=== PATIENT | female | born 1965 | race African-American/Black ===

== ENCOUNTER 2016-07-29 15:17 | Emergency (ER) | payer OTHER ==
--- NOTE | 2016-07-29 15:20 | PDOC ---
History of Present Illness <Lorena Muller - Last Filed: 07/29/16 18:14> <Edwina Montanez - Last Filed: 07/29/16 18:44> - General Chief Complaint: Chest Pain Stated Complaint: CHEST PAIN Time Seen by Provider: 07/29/16 15:20 - History of Present Illness Initial Comments: 07/29/16 16:03 The patient is a 50 year old female, with a significant past medical history of hypertension (enalapril 10 mg, amlodipine 5 mg, hydrochlorothiazide 25 mg), who presents to the emergency department with pleuritic chest pain and swelling to her bilateral lower extremities since yesterday. The patient describes her chest pain as a pulling in her chest that lasted all night which is exacerbated with deep inspiration. Secondarily, the patient reports her lower extremities are more swollen today, worse on the left than the right. The patient reports driving to and from [place] 8 days ago. She reports having a negative stress test over 5 years ago which was negative. She denies history of blood clots. She denies shortness of breath, headache and dizziness. She denies fever, chills , nausea, vomit, diarrhea and constipation. She denies dysuria, frequency, urgency and hematuria. Allergies: penicillin (childhood) Social history: Denies toxic habits Family HIstory: Cardiac Disease s/p stents (father age 60) PCP - Dr. Robert Ceballos (Edwina Montanez) Past History - Past Medical History HTN: Yes - Immunization History Td Vaccination: (unknown) Immunization Up to Date: Yes - Psycho/Social/Smoking Cessation Hx Anxiety: No Suicidal Ideation: No Smoking Status: No Smoking History: Never smoked Years of Tobacco Use: 0 Number of Cigarettes Smoked Daily: 0 Cigars Per Day: 0 Hx Alcohol Use: No Drug/Substance Use Hx: No <Lorena Muller - Last Filed: 07/29/16 18:14> <Edwina Montanez - Last Filed: 07/29/16 18:44> - Past Medical History Allergies/Adverse Reactions: Allergies Allergy/AdvReac Type Severity Reaction Status Date / Time Penicillins Allergy Severe anaphylaxis Verified 07/29/16 15:18 Home Medications: Ambulatory Orders Hydrochlorothiazide 25 mg PO DAILY 05/14/12 Amlodipine Besylate 5 mg PO DAILY 07/29/16 Enalapril Maleate [Vasotec -] 10 mg PO DAILY 07/29/16 Review of Systems <Lorena Muller - Last Filed: 07/29/16 18:14> - Review of Systems Able to Perform ROS?: Yes <Edwina Montanez - Last Filed: 07/29/16 18:44> - Review of Systems Comments:: 07/29/16 16:03 GENERAL/CONSTITUTIONAL: No fever or chills. No weakness. HEAD, EYES, EARS, NOSE AND THROAT: No change in vision. No ear pain or discharge. No sore throat. CARDIOVASCULAR: (+) Pleuritic chest pain. No shortness of breath. RESPIRATORY: No cough, wheezing, or hemoptysis. GASTROINTESTINAL: No nausea, vomiting, diarrhea or constipation. GENITOURINARY: No dysuria, frequency, or change in urination. MUSCULOSKELETAL: (+) bilateral lower extremity edema. No joint or muscle pain. No neck or back pain. SKIN: No rash NEUROLOGIC: No headache, vertigo, loss of consciousness, or change in strength/ sensation. ENDOCRINE: No increased thirst. No abnormal weight change. HEMATOLOGIC/LYMPHATIC: No anemia, easy bleeding, or history of blood clots. ALLERGIC/IMMUNOLOGIC: No hives or skin allergy. (Edwina Montanez) *Physical Exam <Lorena Muller - Last Filed: 07/29/16 18:14> <Edwina Montanez - Last Filed: 07/29/16 18:44> - Vital Signs Last Vital Signs Temp Pulse Resp BP Pulse Ox 98 F 62 18 152/84 100 07/29/16 15:18 07/29/16 15:18 07/29/16 15:18 07/29/16 15:18 07/29/16 15:18 - Physical Exam Comments: 07/29/16 16:04 GENERAL: Awake, alert, and fully oriented, in no acute distress HEAD: No signs of trauma EYES: PERRLA, EOMI, sclera anicteric, conjunctiva clear ENT: Auricles normal inspection, hearing grossly normal, nares patent, oropharynx clear without exudates. Moist mucosa NECK: Normal ROM, supple, no lymphadenopathy, JVD, or masses LUNGS: Breath sounds equal, clear to auscultation bilaterally. No wheezes, and no crackles HEART: (+) right sided chest wall ttp, Regular rate and rhythm, normal S1 and S2 , no murmurs, rubs or gallops ABDOMEN: Soft, nontender, normoactive bowel sounds. No guarding, no rebound. No masses EXTREMITIES: (+) bilateral lower extremity edema: left slightly larger than right. Normal range of motion, No clubbing or cyanosis. No cords, erythema, or tenderness NEUROLOGICAL: Normal speech, normal gait SKIN: Warm, Dry, normal turgor, no rashes or lesions noted. (Edwina Montanez) Heart Score/ECG Review - History History: Slightly suspicious - Electrocardiogram EKG: Non specific repolarization disturbance - Age Age: 45-65 - Risk Factors Risk Factors Heart Score: Yes Hx Hypertension, Yes Positive family hx of cardiac disease Based on the list above the patient has:: 1-2 risk factors - Troponin Troponin: </= normal limit - Score Heart Score - Total: 3 #1 General ECG Interpretation: Sinus Rhythm, Normal Rate (58), Normal Intervals, No acute ischemic changes Compared to previous ECG there are: Other <Lorena Muller - Last Filed: 07/29/16 18:14> <Edwina Montanez - Last Filed: 07/29/16 18:44> #1 07/29/16 16:41 TWI III, flat AVF, no change comparison 08/19/11 (Lorena Muller) ED Treatment Course - LABORATORY CBC & Chemistry Diagram: 07/29/16 16:00 07/29/16 16:00 <Lorena Muller - Last Filed: 07/29/16 18:14> - LABORATORY CBC & Chemistry Diagram: 07/29/16 16:00 07/29/16 16:00 <Edwina Montanez - Last Filed: 07/29/16 18:44> - ADDITIONAL ORDERS Additional order review: Laboratory Results 07/29/16 07/29/16 07/29/16 16:00 16:00 16:00 INR 1.06 Sodium 137 Potassium 3.3 L Chloride 103 Carbon Dioxide 26 Anion Gap 8 BUN 12 Creatinine 0.9 Creat Clearance w eGFR > 60 Random Glucose 91 Calcium 8.9 Total Bilirubin 0.5 AST 21 ALT 15 Alkaline Phosphatase 51 Creatine Kinase 90 Troponin I < 0.03 L Total Protein 6.6 Albumin 3.6 Urine HCG, Qual 07/29/16 15:25 INR Sodium Potassium Chloride Carbon Dioxide Anion Gap BUN Creatinine Creat Clearance w eGFR Random Glucose Calcium Total Bilirubin AST ALT Alkaline Phosphatase Creatine Kinase Troponin I Total Protein Albumin Urine HCG, Qual Negative 07/29/16 16:00 RBC 4.17 MCV 84.6 MCHC 34.5 RDW 12.8 MPV 8.1 Neutrophils % 65.3 Lymphocytes % 24.0 Monocytes % 7.1 Eosinophils % 2.6 Basophils % 1.0 - RADIOLOGY Radiograph Interpretation: 07/29/16 17:50 EXAM: CTA chest was read by Jorge Gee MD at 17:35 EST REASON FOR EXAM: Pleuritic chest pain and leg swelling. Recent travel FINDINGS: There is no evidence of pulmonary embolism The thoracic aorta is normal in course and caliber without dissection The heart is not enlarged. Trace pericardial effusion The tracheobronchial tree is patent Mild dependent atelectasis with no air space consolidation, infiltrates or pleural effusions Small hiatal hernia versus epiphrenic diverticulum There are innumerable scattered hypodense lesions throughout the liver the largest measuring up to 1.5 cm are likely cysts. Most are subcentimeter and too small to accurately characterize. Splenic calcification compatible with a granuloma EXAM: Ultrasound venous Doppler left lower extremity was read by Jorge Gee MD 07/29/2016 18:09 EST REASON FOR EXAM: Left leg swelling FINDINGS: The deep veins of the left lower extremity are compressible, patent and augment normally. No evidence of deep vein thrombosis (Edwina Montanez) - Medications Given in the ED: ED Medications Discontinued Medications Generic Name Dose Route Start Last Admin Trade Name Juanq PRN Reason Stop Dose Admin Aspirin 162 mg 07/29/16 15:54 07/29/16 16:13 Asa - PO 07/29/16 15:55 162 mg ONCE ONE Administration Medical Decision Making <Lorena Muller - Last Filed: 07/29/16 18:14> <Edwina Montanez - Last Filed: 07/29/16 18:44> - Medical Decision Making 07/29/16 15:20 50 yo F with h/o HTN, here wtih chest pain started last pm, lasted all night. described as a " stretching" feeling across chest , is pluertic, no associated sob or n/v no diaphoresis. took gingeral e to help di not help. does have family h/o CAD father stents in 60's yo,. she did have stress test over 5 yrs ago. did recently travel by car to [place], c/o bilat leg swelling, left greater than right. no h/o pe or dvt. on exam awake alert, lungs clear. mild right sided chest wall tenderness. heart RRR no mr/g. abd soft. ext wwp mild nonpitting edeam L >R. symmetric pulses bilaterally. differential: costochondritis, pe acs. infection plan cta chest , labs trop ekg aspirin, observation. will d/w pt pcp regarding need for rpeat stress. 07/29/16 16:36 07/29/16 18:14 pt with negative troponin. ct a negative for pe. doppler negative of left leg. d/w dr. Sampson, 4 hour troponin, will dc home followup in 72 hours for stress test. recommend baby aspirin until followup. (Lorena Muller) 07/29/16 17:47 Dr. Dav Ceballos was paged via phone answering service requesting a call back for doctor to doctor consult at this time. I have been informed Dr. Sampson is covering for Dr. Ceballos this evening and will return the page. 07/29/16 18:05 Dr. Sampson returned the call and the patient's case was discussed. (Edwina Montanez) *DC/Admit/Observation/Transfer <Lorena Muller - Last Filed: 07/29/16 18:14> <Edwina Montanez - Last Filed: 07/29/16 18:44> Diagnosis at time of Disposition: Chest pain - Discharge Dispostion Condition at time of disposition: Stable - Referrals Referrals: Dav Ceballos MD [Primary Care Provider] - - Patient Instructions Printed Discharge Instructions: DI for Chest Pain Additional Instructions: you should take baby aspirin daily until followup. follow up with Dr. Ceballos within 2 - 3 days. call sunday to . you will need another outpatient stress test. return for recurrent or worsening pain , shortness of breath or any concerns. your test today including blood work, heart enzymes, ekg , ct of your chest and doppler of your leg were all negative. incidently , they did see nonsignificant cyst on your liver. you may need follow up ct in 6 mo, or outpatient MRI. give copy of your report to Dr. Ceballos when you followup. - Attestations Scribe Attestion: 07/29/16 16:06 Documentation prepared by Edwina Montanez, acting as certified medical coder for Lorena Muller MD, (Edwina Montanez)
[2016-07-29 15:24] VITALS: TEMP 98; BMI 31.1
[2016-07-29] MEDS ORDERED: ASPIRIN 81 MG CHEWABLE TABLETS PO ONE (15:54)
[2016-07-29] MEDS ORDERED: ASPIRIN 81 MG CHEWABLE TABLETS ONE (16:11)
[2016-07-29 16:20] LABS: EOSINOPHIL 2.6 % (0-4.5); MCH 29.2 pg (25.7-33.7); MCHC 34.5 g/dl (32.0-36.0); MEAN CELL VOLUME 84.6 fl (80-96); MEAN PLT VOLUME 8.1 fl (7.5-11.1); NEUTROPHILS 65.3 % (42.8-82.8); PLATELET COUNT 241 K/MM3 (134-434); RDW 12.8 % (11.6-15.6); WHITE BLOOD COUNT 6.3 K/mm3 (4.0-10.8)
[2016-07-29 16:29] LABS: INR 1.06 (0.82-1.09); PROTHROMBIN TIME (PATIENT) 11.8 SEC (10.2-13.0)
[2016-07-29 16:31] LABS: ALBUMIN 3.6 g/dl (3.5-5.0); ALK PHOS 51 U/L (32-92); ANION GAP 8 (8-16); CALCIUM 8.9 mg/dl (8.4-10.2); CO2 26 mmol/L (22-28); CREATININE 0.9 mg/dl (0.6-1.3); GLUCOSE,RANDOM 91 mg/dl (74-106); SGOT/AST 21 U/L (10-42); SGPT/ALT 15 U/L (10-40); TOT PROT 6.6 g/dl (6.4-8.3)
[2016-07-29 16:33] LABS: CPK(DFH) 90 IU/L (26-140)
[2016-07-29 16:40] LABS: TROPONIN I (DFP) < 0.03 ng/ml (0.03-0.50)
[2016-07-29 16:47] LABS: BILIRUBIN,TOTAL 0.5 mg/dl (0.2-1.0)
--- NOTE | 2016-07-29 19:10 | PDOC ---
*Physical Exam - Vital Signs Last Vital Signs Temp Pulse Resp BP Pulse Ox 98 F 62 18 152/84 100 07/29/16 15:18 07/29/16 15:18 07/29/16 15:18 07/29/16 15:18 07/29/16 15:18 Heart Score/ECG Review - History History: Slightly suspicious - Electrocardiogram EKG: Non specific repolarization disturbance - Age Age: 45-65 - Risk Factors Risk Factors Heart Score: Yes Hx Hypertension, Yes Positive family hx of cardiac disease Based on the list above the patient has:: 1-2 risk factors - Troponin Troponin: </= normal limit - Score Heart Score - Total: 3 ED Treatment Course - LABORATORY CBC & Chemistry Diagram: 07/29/16 16:00 07/29/16 16:00 - ADDITIONAL ORDERS Additional order review: Laboratory Results 07/29/16 07/29/16 07/29/16 16:00 16:00 16:00 INR 1.06 Sodium 137 Potassium 3.3 L Chloride 103 Carbon Dioxide 26 Anion Gap 8 BUN 12 Creatinine 0.9 Creat Clearance w eGFR > 60 Random Glucose 91 Calcium 8.9 Total Bilirubin 0.5 AST 21 ALT 15 Alkaline Phosphatase 51 Creatine Kinase 90 Troponin I < 0.03 L Total Protein 6.6 Albumin 3.6 Urine HCG, Qual 07/29/16 15:25 INR Sodium Potassium Chloride Carbon Dioxide Anion Gap BUN Creatinine Creat Clearance w eGFR Random Glucose Calcium Total Bilirubin AST ALT Alkaline Phosphatase Creatine Kinase Troponin I Total Protein Albumin Urine HCG, Qual Negative 07/29/16 16:00 RBC 4.17 MCV 84.6 MCHC 34.5 RDW 12.8 MPV 8.1 Neutrophils % 65.3 Lymphocytes % 24.0 Monocytes % 7.1 Eosinophils % 2.6 Basophils % 1.0 - Medications Given in the ED: ED Medications Discontinued Medications Generic Name Dose Route Start Last Admin Trade Name Freq PRN Reason Stop Dose Admin Aspirin 162 mg 07/29/16 15:54 07/29/16 16:13 Asa - PO 07/29/16 15:55 162 mg ONCE ONE Administration Medical Decision Making - Medical Decision Making 07/29/16 19:08 Pt signed out to me from Dr. Muller. The patient is a 50y F hx of htn presents with a pleuritic cp, has a negative 1st set of troponin and neg CTA for PE, sp ASA. Pts HEART score is 3, low risk. Is currently awaiting 2nd troponin at 8pm and pt will be discharged for an outpt stress test. Pt currently resting comfortablly in her stretcher. 07/29/16 20:48 trop neg x 2 pt feeling improved will dc with pmd fu return precautions were discussed I discussed the physical exam findings, ancillary test results and final diagnoses with the patient. I answered all of the patient's questions. The patient was satisfied with the care received and felt comfortable with the discharge plan and treatment plan. The patient will call their primary care physician within 24 hours to arrange follow-up and will return to the Emergency Department with any new, persistent or worsening symptoms. *DC/Admit/Observation/Transfer Diagnosis at time of Disposition: Chest pain Qualifiers: Chest pain type: unspecified Qualified Code(s): R07.9 - Chest pain, unspecified - Discharge Dispostion Disposition: HOME Condition at time of disposition: Improved Admit: No - Referrals Referrals: Dav Ceballos MD [Primary Care Provider] - - Patient Instructions Printed Discharge Instructions: DI for Chest Pain Additional Instructions: you should take baby aspirin daily until followup. follow up with Dr. Ceballos within 2 - 3 days. call sunday to schedule. you will need another outpatient stress test. return for recurrent or worsening pain , shortness of breath or any concerns. your test today including blood work, heart enzymes, ekg , ct of your chest and doppler of your leg were all negative. incidently , they did see nonsignificant cyst on your liver. you may need follow up ct in 6 mo, or outpatient MRI. give copy of your report to Dr. Ceballos when you followup. - Post Discharge Activity
[2016-07-29 20:02] VITALS: BP 114/65; PULSE 57
[2016-07-29 20:31] LABS: CPK(DFH) 86 IU/L (26-140)
[2016-07-29 20:43] LABS: TROPONIN I (DFP) < 0.03 ng/ml (0.03-0.50)
--- NOTE | 2016-07-31 08:55 | EKG ---
Test Reason : Blood Pressure : / mmHG Vent. Rate : 058 BPM Atrial Rate : 058 BPM P-R Int : 166 ms QRS Dur : 090 ms QT Int : 406 ms P-R-T Axes : 043 023 -04 degrees QTc Int : 398 ms SINUS BRADYCARDIA NONSPECIFIC T WAVE ABNORMALITY ABNORMAL ECG WHEN COMPARED WITH ECG OF 19-AUG-2011 03:57, CRITERIA FOR SEPTAL INFARCT ARE NO LONGER PRESENT Confirmed by VISHAL RICHARDS MD ([id number]) on 07/31/2016 8:55:17 AM Referred By: FLOR[place] Confirmed By:VISHAL RICHARDS MD
== END 2016-07-29 20:52 | disposition home or self-care (01) ==
LOC: FER 15:17
DX: R07.89 Other chest pain (principal); I10 Essential (primary) hypertension
CPT/HCPCS: 36415; 71275-TC; 80053; 82550; 84484; 84703; 85025; 85610; 93005; 93971-TC; 99283-25

== ENCOUNTER 2018-05-03 17:17 | Emergency (ER) | payer OTHER ==
[2018-05-03 17:23] VITALS: BP 172/83; PULSE 53; TEMP 98.3; BMI 29.2
[2018-05-03] MEDS ORDERED: IBUPROFEN 600 MG TABLET (FP) PO ONE ×2 (17:35→17:41)
--- NOTE | 2018-05-03 17:35 | PDOC ---
History of Present Illness - General History Source: Patient Exam Limitations: No Limitations <Cherelle Carrasco - Last Filed: 05/03/18 17:35> - History of Present Illness Initial Comments: This patient is a 52 year old female, with no significant PMHx, who presents with LLE swelling. Patient states that yesterday she had left knee pain and swelling, she kept her leg elevated and eventually the swelling in her knee went down. She comes in today because she noticed that the swelling must have travelled from her knee to her calf and now her LLE is swollen and painful with ambulation. Denies any fever, chills, chest pain, shortness of breath. Denies any numbness or tingling in leg. No h/o DVTs , no long car rides, denies trauma. <Claire Etienne - Last Filed: 05/05/18 09:47> - General Chief Complaint: Edema Stated Complaint: SWOLLEN LEFT LEG Time Seen by Provider: 05/03/18 17:23 Past History - Past Medical History COPD: No HTN: Yes - Surgical History Abdominal Surgery: Yes - Immunization History Td Vaccination: (unknown) Immunization Up to Date: Yes - Suicide/Smoking/Psychosocial Hx Smoking Status: No Smoking History: Never smoked Years of Tobacco Use: 0 Have you smoked in the past 12 months: No Number of Cigarettes Smoked Daily: 0 Cigars Per Day: 0 Information on smoking cessation initiated: No Hx Alcohol Use: No Drug/Substance Use Hx: No Substance Use Type: None <Cherelle Carrasco - Last Filed: 05/03/18 17:35> <Claire Etienne - Last Filed: 05/05/18 09:47> - Past Medical History Allergies/Adverse Reactions: Allergies Allergy/AdvReac Type Severity Reaction Status Date / Time Penicillins Allergy Severe anaphylaxis Verified 05/03/18 17:18 Home Medications: Ambulatory Orders Hydrochlorothiazide 25 mg PO DAILY 05/14/12 Amlodipine Besylate 5 mg PO DAILY 07/29/16 Enalapril Maleate [Vasotec -] 10 mg PO DAILY 07/29/16 Review of Systems - Review of Systems Comments:: GENERAL/CONSTITUTIONAL: No: fever, chills, weakness, loss of appetite. HEAD, EYES, EARS, NOSE AND THROAT: No: change in vision, ear pain, discharge, sore throat, throat swelling. CARDIOVASCULAR: No: chest pain, lightheadedness, palpitations, syncope RESPIRATORY: No: cough, shortness of breath, wheezing, hemoptysis, stridor. GASTROINTESTINAL: No: nausea, vomiting, abdominal cramping, diarrhea, rectal bleeding, constipation. GENITOURINARY: No: dysuria, hematuria, frequency, urgency, flank pain. MUSCULOSKELETAL: +LLE edema and pain. No: back pain, neck pain. SKIN: No: lesions, pallor, rash or easy bruising. NEUROLOGIC: No: headache, vertigo, paresthesias, weakness ENDOCRINE: No: unexplained weight gain or loss HEMATOLOGIC/LYMPHATIC: No: anemia, easy bleeding, swelling nodes 05/05/18 09:44 <Claire Etienne - Last Filed: 05/05/18 09:47> *Physical Exam - Vital Signs Last Vital Signs Temp Pulse Resp BP Pulse Ox 98.3 F 53 L 18 172/83 H 99 05/03/18 17:19 05/03/18 17:19 05/03/18 17:19 05/03/18 17:19 05/03/18 17:19 <Cherelle Carrasco - Last Filed: 05/03/18 17:35> - Vital Signs Last Vital Signs Temp Pulse Resp BP Pulse Ox 98.3 F 53 L 18 172/83 H 99 05/03/18 17:19 05/03/18 17:19 05/03/18 17:19 05/03/18 17:19 05/03/18 17:19 - Physical Exam Comments: GENERAL: The patient is in no acute distress. HEAD: Normal with no signs of trauma. EYES: PERRLA, EOMI, sclera anicteric, conjunctiva clear. ENT: Ears normal, nares patent, oropharynx clear without exudates. Moist mucous membranes. NECK: Normal range of motion, supple without lymphadenopathy, JVD, or masses. LUNGS: Breath sounds equal, clear to auscultation bilaterally. No wheezes, and no crackles. HEART:Regular rate and rhythm, normal S1 and S2 without murmur, rub or gallop. ABDOMEN: Soft, nontender, normoactive bowel sounds. No guarding, no rebound. EXTREMITIES: Left leg: edematous 3+ pitting edema to mid-calf, calf is tender to palpation. LLE slightly edematous, no erythema, tenderness to palpation, strength and sensation intact. NEUROLOGICAL: Cranial nerves II through XII grossly intact. Normal speech. No focal neurological deficits. MUSCULOSKELETAL: Back nontender to palpation, no CVA tenderness SKIN: Warm, Dry, normal turgor, no rashes or lesions noted. <Claire Etienne - Last Filed: 05/05/18 09:47> Moderate Sedation - Procedure Monitoring Vital Signs: Procedure Monitoring Vital Signs Temperature 98.3 F 05/03/18 17:19 Pulse Rate 53 L 05/03/18 17:19 Respiratory Rate 18 05/03/18 17:19 Blood Pressure 172/83 H 05/03/18 17:19 O2 Sat by Pulse Oximetry (%) 99 05/03/18 17:19 <Cherelle Carrasco - Last Filed: 05/03/18 17:35> - Procedure Monitoring Vital Signs: Procedure Monitoring Vital Signs Temperature 98.3 F 05/03/18 17:19 Pulse Rate 53 L 05/03/18 17:19 Respiratory Rate 18 05/03/18 17:19 Blood Pressure 172/83 H 05/03/18 17:19 O2 Sat by Pulse Oximetry (%) 99 05/03/18 17:19 <Claire Etienne - Last Filed: 05/05/18 09:47> ED Treatment Course - Medications Given in the ED: ED Medications Discontinued Medications Generic Name Dose Route Start Last Admin Trade Name Juanq PRN Reason Stop Dose Admin Ibuprofen 600 mg 05/03/18 17:35 05/03/18 17:47 Motrin - PO 05/03/18 17:36 600 mg ONCE ONE Administration <Claire Etienne - Last Filed: 05/05/18 09:47> *DC/Admit/Observation/Transfer <Cherelle Carrasco - Last Filed: 05/03/18 17:35> - Attestations Scribe Attestion: 05/05/18 09:47 Documentation prepared by Claire Etienne, acting as medical pathologist for Cherelle Carrasco MD. <Claire Etienne - Last Filed: 05/05/18 09:47> Diagnosis at time of Disposition: Edema - Discharge Dispostion Disposition: HOME Condition at time of disposition: Stable
== END 2018-05-03 19:30 | disposition home or self-care (01) ==
LOC: FER 17:17
DX: M79.89 Other specified soft tissue disorders (principal); I10 Essential (primary) hypertension
CPT/HCPCS: 93971-TC; 99282-25

== ENCOUNTER 2020-06-14 12:31 | Emergency (ER) | payer OTHER ==
[2020-06-14 12:38] VITALS: BP 163/91; PULSE 65; TEMP 98.1; BMI 25.6
[2020-06-14] MEDS ORDERED: IBUPROFEN 600 MG TABLET (FP) PO ONE ×2 (13:13→13:14)
== END 2020-06-14 13:23 | disposition home or self-care (01) ==
LOC: JER 12:31 → JERFT 12:31
DX: S90.31XA Contusion of right foot, initial encounter (principal); S90.121A Contusion of right lesser toe(s) without damage to nail, initial encounter
CPT/HCPCS: 73630-TC-RT-FY; 99283-25

== ENCOUNTER 2021-03-10 08:06 | Emergency (ER) | payer OTHER ==
[2021-03-10 08:12] VITALS: BP 175/79; PULSE 76; TEMP 98.2; BMI 31.1
[2021-03-10 09:16] LABS: PH,URINE 7.5 (5.0-8.0); URINE APPEARANCE CLEAR; URINE BILIRUBIN NEGATIVE (NEGATIVE); URINE COLOR YELLOW; URINE GLUCOSE (UA) NEGATIVE (NEGATIVE); URINE KETONE NEGATIVE (NEGATIVE); URINE LEUK ESTERASE NEGATIVE (NEGATIVE); URINE NITRITE NEGATIVE (NEGATIVE); URINE PROTEIN NEGATIVE (NEGATIVE); URINE UROBILINOGEN 0.2 mg/dL (0.2-1.0)
[2021-03-10 09:33] LABS: BASO % 0.8 % (0-2.0); EOS % 1.7 % (0-4.5); HEMATOCRIT 36.1 % (32.4-45.2); HEMOGLOBIN 11.6 GM/dL (10.7-15.3); LYMPH % 21.6 % (8-40); MCH 26.8 pg (25.7-33.7); MCHC 32.2 g/dl (32.0-36.0); MEAN CELL VOLUME 83.1 fl (80-96); MEAN PLT VOLUME 7.8 fl (7.5-11.1); MONO % 7.7 % (3.8-10.2); NEUT % 68.2 % (42.8-82.8); PLATELET COUNT 268 10^3/uL (134-434); RBC 4.34 M/mm3 (3.60-5.2); RDW 13.8 % (11.6-15.6); WHITE BLOOD COUNT 5.3 K/mm3 (4.0-10.0)
[2021-03-10 10:05] LABS: CALCIUM 8.9 mg/dL (8.5-10.1)
[2021-03-10 10:06] LABS: ALBUMIN 3.6 g/dl (3.4-5.0); BLOOD UREA NITROGEN 11.4 mg/dL (7-18)
[2021-03-10 10:09] LABS: CREATININE 0.7 mg/dL (0.55-1.3)
[2021-03-10 10:10] LABS: TOT PROT 6.8 g/dl (6.4-8.2)
[2021-03-10 10:11] LABS: BILIRUBIN,TOTAL 0.3 mg/dL (0.2-1)
[2021-03-10 10:14] LABS: N-TERMINAL BNP 24.8 pg/ml (5-125)
== END 2021-03-10 11:37 | disposition home or self-care (01) ==
LOC: JER 08:06
DX: R22.43 Localized swelling, mass and lump, lower limb, bilateral (principal); X50.1XXA Overexertion from prolonged static or awkward postures, initial encounter
CPT/HCPCS: 36415; 71046-TC-FY; 80053; 81003; 83735; 83880; 85025; 87086; 87186; 93005; 93010; 93970-TC; 99285-25

== ENCOUNTER 2021-07-13 19:00 | Inpatient (IN) | payer OTHER ==
[2021-07-13] MEDS ORDERED: ACETAMINOPHEN 1000 MG/100 ML BAG IVPB ONE (21:54)
[2021-07-13] MEDS ORDERED: MAG HYDROX/AL HYDROX/SIMETH 30 ML UNIT-DOSE CUP PO ONE (21:54)
[2021-07-13] MEDS ORDERED: ONDANSETRON 4 MG/2 ML VIAL IVPUSH ONE (21:54)
[2021-07-13] MEDS ORDERED: FAMOTIDINE 20 MG/50 ML IVPB 20 MG/50 ML MG IVPB ONE (21:54)
[2021-07-13] MEDS ORDERED: SODIUM CHLORIDE 0.9% 500 ML INFUS.BAG IV ONE (21:54)
[2021-07-13] MEDS ORDERED: ACETAMINOPHEN INJECTION 100 ML IVPB ONE (23:37)
[2021-07-13] MEDS ORDERED: MAG HYDROX/AL HYDROX/SIMETH 30 ML UNIT-DOSE CUP ONE (23:37)
[2021-07-13] MEDS ORDERED: FAMOTIDINE 10 MG/ML VIAL IVPB ONE (23:37)
[2021-07-13] MEDS ORDERED: ONDANSETRON 4 MG/2 ML VIAL ONE (23:37)
[2021-07-14 00:13] LABS: HEMOGLOBIN 11.3 GM/dL (10.7-15.3); MCH 26.9 pg (25.7-33.7); MCHC 33.1 g/dl (32.0-36.0); MEAN CELL VOLUME 81.4 fl (80-96); MEAN PLT VOLUME 7.5 fl (7.5-11.1); PLATELET COUNT 299 10^3/uL (134-434); RBC 4.18 M/mm3 (3.60-5.2); RDW 15.5 % (11.6-15.6); WHITE BLOOD COUNT 12.2 K/mm3 (4.0-10.0)
[2021-07-14 00:34] LABS: CALCIUM 9.5 mg/dL (8.5-10.1)
[2021-07-14 00:35] LABS: ALBUMIN 3.6 g/dl (3.4-5.0); BLOOD UREA NITROGEN 15.4 mg/dL (7-18)
[2021-07-14 00:38] LABS: CREATININE 1.1 mg/dL (0.55-1.3)
[2021-07-14 00:39] LABS: BILIRUBIN,TOTAL 0.6 mg/dL (0.2-1); TOT PROT 7.5 g/dl (6.4-8.2)
[2021-07-14] MEDS ORDERED: POTASSIUM CHLORIDE TABS 20 MEQ TABLET.ER (FP) PO ONE ×2 (01:03→04:03)
[2021-07-14 01:19] LABS: ANISOCYTOSIS 3+; MACROCYTOSIS 1+; OVALOCYTE 1+; ROULEAU 1+
[2021-07-14 01:21] LABS: NEUT % 11.3 % (42.8-82.8)
[2021-07-14] MEDS ORDERED: ONDANSETRON 4 MG/2 ML VIAL IVPUSH ONE (03:37)
[2021-07-14] MEDS ORDERED: morphine SULFATE 4 MG/ML VIAL IVPUSH ONE (03:37)
[2021-07-14] MEDS ORDERED: morphine SULFATE 4 MG/ML VIAL ONE (04:03)
[2021-07-14] MEDS ORDERED: ONDANSETRON 4 MG/2 ML VIAL ONE (04:03)
[2021-07-14] MEDS ORDERED: POLYETHYLENE GLYCOL (HEALTHYLAX) 3350 17 GM PACKET PO PRN (04:39)
[2021-07-14] MEDS ORDERED: TRIMETHOBENZAMIDE HCL 200MG/2ML INJ IM PRN (04:39)
[2021-07-14] MEDS ORDERED: morphine SULFATE 4 MG/ML VIAL IVPB PRN (05:46)
[2021-07-14] MEDS ORDERED: ACETAMINOPHEN 1000 MG/100 ML BAG IVPB PRN (06:00)
[2021-07-14 07:41] LABS: INR 1.29 (0.83-1.09); PROTHROMBIN TIME (PATIENT) 14.9 SEC (9.7-13.0)
[2021-07-14 07:44] LABS: ACTIVATED PTT 31.8 SECONDS (25.2-36.5)
[2021-07-14 07:49] LABS: CALCIUM 8.8 mg/dL (8.5-10.1)
[2021-07-14 07:50] LABS: BLOOD UREA NITROGEN 14.1 mg/dL (7-18); MAGNESIUM 1.9 mg/dL (1.8-2.4)
[2021-07-14 07:53] LABS: CREATININE 0.9 mg/dL (0.55-1.3)
[2021-07-14 09:47] LABS: URINE APPEARANCE CLOUDY; URINE BILIRUBIN NEGATIVE (NEGATIVE); URINE COLOR YELLOW; URINE GLUCOSE (UA) NEGATIVE (NEGATIVE); URINE KETONE NEGATIVE (NEGATIVE); URINE PROTEIN 1+ (NEGATIVE); URINE UROBILINOGEN 0.2 mg/dL (0.2-1.0)
[2021-07-14 09:48] LABS: EPI CELLS 3.2 /uL (0-25.1); HYALINE CASTS 3.58 /uL (0-3.1); URINE BACTERIA 15874.4 /uL (0-1359); URINE LEUK ESTERASE 1+ (NEGATIVE); URINE NITRITE NEGATIVE (NEGATIVE); URINE RBC 285.3 /uL (0-23.9); URINE WBC 793.4 /uL (0-25.8)
[2021-07-14] MEDS ORDERED: HYDROCHLOROTHIAZIDE 25 MG TABLET (FP) PO SCH (10:00)
[2021-07-14] MEDS ORDERED: DEXTROSE 5%-0.45% SALINE 1,000 ML IV SCH (10:30)
[2021-07-14 11:08] VITALS: BMI 25.3
[2021-07-14] MEDS ORDERED: DEXTROSE 5%-0.45% SALINE 990 ML with POTASSIUM CHLORIDE 20 MEQ IV SCH (11:40)
[2021-07-14] MEDS ORDERED: KCL 10 MEQ IVPB 10 MEQ/100 ML INFUS.BAG IVPB SCH (11:45)
[2021-07-14] MEDS: D5-1/2NS+20 MEQ KCL - 20 MEQ/1,000 ML INFUS.BAG IV SCH (12:31)
[2021-07-15] MEDS: D5-1/2NS+20 MEQ KCL - 20 MEQ/1,000 ML INFUS.BAG IV SCH ×2 (00:39→12:31)
[2021-07-15] MEDS ORDERED: ACETAMINOPHEN 325 MG TABLET (FP) PO PRN (06:00)
[2021-07-15 09:18] LABS: BASO % 0.1 % (0-2.0); EOS % 0.1 % (0-4.5); HEMATOCRIT 28.9 % (32.4-45.2); HEMOGLOBIN 9.6 GM/dL (10.7-15.3); LYMPH % 7.4 % (8-40); MCH 27.2 pg (25.7-33.7); MCHC 33.4 g/dl (32.0-36.0); MEAN CELL VOLUME 81.5 fl (80-96); MEAN PLT VOLUME 7.7 fl (7.5-11.1); MONO % 6.3 % (3.8-10.2); NEUT % 86.1 % (42.8-82.8); PLATELET COUNT 228 10^3/uL (134-434); RBC 3.55 M/mm3 (3.60-5.2); RDW 15.4 % (11.6-15.6); WHITE BLOOD COUNT 11.8 K/mm3 (4.0-10.0)
[2021-07-15] MEDS ORDERED: HYDROCHLOROTHIAZIDE 25 MG TABLET (FP) PO SCH (10:00)
[2021-07-15] MEDS ORDERED: amLODIPine BESYLATE 5 MG TABLET (FP) PO SCH (10:00)
[2021-07-15] MEDS ORDERED: ENOXAPARIN NA (PORCINE) 40 MG/0.4 ML DISP.SYRIN SQ SCH (10:00)
[2021-07-15 10:04] LABS: CALCIUM 8.6 mg/dL (8.5-10.1)
[2021-07-15 10:05] LABS: BLOOD UREA NITROGEN 9.2 mg/dL (7-18)
[2021-07-15 10:08] LABS: CREATININE 0.7 mg/dL (0.55-1.3)
[2021-07-15] MEDS ORDERED: ONDANSETRON 4 MG/2 ML VIAL IVPUSH PRN (15:58)
[2021-07-15] MEDS ORDERED: PROMETHAZINE HCL 25 MG/1 ML VIAL IVPUSH PRN ×2 (15:58→17:49)
[2021-07-15] MEDS ORDERED: PROPOFOL 20 ML ONE ×2 (15:59→16:38)
[2021-07-15] MEDS ORDERED: FENTANYL CITRATE/PF 50 MCG/ML VIAL ONE ×2 (16:00→16:03)
[2021-07-15] MEDS ORDERED: MIDAZOLAM HCL 2 MG/2 ML SINGLE DOSE VIAL ONE (16:00)
[2021-07-15] MEDS ORDERED: LACTATED RINGERS SOLUTION 1,000 ML IV SCH ×2 (16:00→17:49)
[2021-07-15] MEDS ORDERED: DEXAMETHASONE SOD PHOSPHATE 4 MG/1 ML VIAL ONE (16:44)
[2021-07-15] MEDS ORDERED: KETOROLAC TROMETHAMINE 30 MG/1 ML VIAL ONE (16:44)
[2021-07-15] MEDS ORDERED: D5-1/2NS+20 MEQ KCL - 20 MEQ/1,000 ML INFUS.BAG IV SCH (17:49)
[2021-07-16] MEDS: HYDROCHLOROTHIAZIDE 25 MG TABLET (FP) PO SCH (09:38)
[2021-07-16] MEDS: amLODIPine BESYLATE 5 MG TABLET (FP) PO SCH (09:38)
[2021-07-16] MEDS: ENOXAPARIN NA (PORCINE) 40 MG/0.4 ML DISP.SYRIN SQ SCH (09:38)
[2021-07-16] MEDS: D5-1/2NS+20 MEQ KCL - 20 MEQ/1,000 ML INFUS.BAG IV SCH ×2 (16:58→17:43)
[2021-07-17] MEDS: D5-1/2NS+20 MEQ KCL - 20 MEQ/1,000 ML INFUS.BAG IV SCH (06:23)
[2021-07-17 08:57] LABS: BASO % 0.1 % (0-2.0); EOS % 0.7 % (0-4.5); HEMATOCRIT 30.6 % (32.4-45.2); HEMOGLOBIN 10.1 GM/dL (10.7-15.3); LYMPH % 18.4 % (8-40); MCH 26.7 pg (25.7-33.7); MEAN PLT VOLUME 7.7 fl (7.5-11.1); MONO % 6.9 % (3.8-10.2); NEUT % 73.9 % (42.8-82.8); PLATELET COUNT 295 10^3/uL (134-434); RBC 3.78 M/mm3 (3.60-5.2); WHITE BLOOD COUNT 7.9 K/mm3 (4.0-10.0)
[2021-07-17] MEDS: HYDROCHLOROTHIAZIDE 25 MG TABLET (FP) PO SCH (09:58)
[2021-07-17] MEDS: amLODIPine BESYLATE 5 MG TABLET (FP) PO SCH (09:58)
[2021-07-17] MEDS: ENOXAPARIN NA (PORCINE) 40 MG/0.4 ML DISP.SYRIN SQ SCH (09:58)
[2021-07-17] MEDS ORDERED: PHENAZOPYRIDINE HCL 100 MG TABLET (FP) PO PRN (10:31)
[2021-07-17] MEDS: LACTOBACILLUS ACIDOPHILUS 1 TABLET PO SCH (10:51)
[2021-07-17] MEDS ORDERED: MELATONIN 5 MG TABLETS PO ONE (21:10)
[2021-07-18] MEDS: ENOXAPARIN NA (PORCINE) 40 MG/0.4 ML DISP.SYRIN SQ SCH (09:25)
[2021-07-18] MEDS: HYDROCHLOROTHIAZIDE 25 MG TABLET (FP) PO SCH (09:25)
[2021-07-18] MEDS: LACTOBACILLUS ACIDOPHILUS 1 TABLET PO SCH (09:25)
[2021-07-18] MEDS: amLODIPine BESYLATE 5 MG TABLET (FP) PO SCH (09:25)
[2021-07-18 15:21] VITALS: BP 134/76; PULSE 76; TEMP 98.2
== END 2021-07-18 16:55 | disposition home or self-care (01) | DRG 465 ==
LOC: JER 19:00 → JERBED 07-14 04:36 → J5S 07-14 09:06
PROVIDERS: ADMIT Hospitalist; ATTEND Internal Medicine
PROC: 0T768DZ Dilation of Right Ureter with Intraluminal Device, Via Natural or Artificial Opening Endoscopic (ICD-10-PCS; principal; 2021-07-15 16:00)
DX: N13.2 Hydronephrosis with renal and ureteral calculous obstruction (principal); I10 Essential (primary) hypertension; D72.829 Elevated white blood cell count, unspecified; E87.6 Hypokalemia; R11.2 Nausea with vomiting, unspecified
CPT/HCPCS: 0241U-QW; 36415; 74177-TC; 76000-TC-FY; 76700-TC; 80048; 80053; 81003; 83690; 83735; 84484; 85025; 85610; 85730; 87086; 87186; 93005; 93010; 94760; 99285-25

== ENCOUNTER 2021-08-17 04:19 | Day surgery (SDC) | payer OTHER ==
[2021-08-16 09:14] VITALS: BMI 32.9
[2021-08-17] MEDS ORDERED: MIDAZOLAM HCL 2 MG/2 ML SINGLE DOSE VIAL ONE (17:04)
[2021-08-17] MEDS ORDERED: ACETAMINOPHEN INJECTION 100 ML IVPB ONE (17:12)
[2021-08-17] MEDS ORDERED: PROPOFOL 20 ML ONE (17:12)
[2021-08-17] MEDS ORDERED: IOHEXOL 300 MG/ML INFUS..BTL IJ ONE (17:46)
[2021-08-17] MEDS ORDERED: ONDANSETRON 4 MG/2 ML VIAL IVPUSH PRN (18:05)
[2021-08-17 19:47] VITALS: BP 144/64; PULSE 78; TEMP 97
== END 2021-08-17 19:50 | disposition home or self-care (01) ==
LOC: JASU-SURG 04:19
PROVIDERS: ATTEND Urology
PROC: 0T9680Z Drainage of Right Ureter with Drainage Device, Via Natural or Artificial Opening Endoscopic (ICD-10-PCS; principal; 2021-08-17 16:00)
PROC: BT1DYZZ Fluoroscopy of Right Kidney, Ureter and Bladder using Other Contrast (ICD-10-PCS; 2021-08-17 16:00)
DX: N20.1 Calculus of ureter (principal)
CPT/HCPCS: 76000-TC-FY; 94760

== ENCOUNTER 2023-06-06 04:30 | Day surgery (SDC) | payer OTHER ==
[2023-06-04 10:22] VITALS: BMI 35.3
[2023-06-06 08:40] VITALS: TEMP 97.3
[2023-06-06 09:06] VITALS: BP 151/79; PULSE 59; RESP 18
== END 2023-06-06 09:28 | disposition home or self-care (01) ==
LOC: JASU-ENDO 04:30
PROVIDERS: ATTEND Internal Medicine Gastroenterology
PROC: 0DBL8ZX Excision of Transverse Colon, Via Natural or Artificial Opening Endoscopic, Diagnostic (ICD-10-PCS; 2023-06-06)
PROC: 0DBN8ZX Excision of Sigmoid Colon, Via Natural or Artificial Opening Endoscopic, Diagnostic (ICD-10-PCS; 2023-06-06)
PROC: 0DBP8ZX Excision of Rectum, Via Natural or Artificial Opening Endoscopic, Diagnostic (ICD-10-PCS; principal; 2023-06-06 08:00)
DX: Z12.11 Encounter for screening for malignant neoplasm of colon (principal); D12.8 Benign neoplasm of rectum; D12.5 Benign neoplasm of sigmoid colon; D12.3 Benign neoplasm of transverse colon; Z83.719 Family history of colon polyps, unspecified
CPT/HCPCS: 88305-TC